=== PATIENT | female | born 1965 | race Caucasian/White ===

== ENCOUNTER 2016-09-21 19:09 | Emergency (ER) | payer SELFPAY ==
[~2016-09-21] VITALS: Ht 162.6 cm; Wt 95.3 kg
[~2016-09-21 19:09] MED LIST: PENI500T PO
[2016-09-21 19:22] VITALS: BP 128/83
--- NOTE | 2016-09-21 19:26 | ED.ADGEN ---
Past Medical History Past Medical History: COPD, GERD Additional Past Medical Histor: ear infections Past Surgical History: Cholecystectomy, , Other Additional Past Surgical Histo: ears Alcohol Use: None Drug Use: None Adult General Chief Complaint Chief Complaint: KNEE INJURY HPI HPI Patient is a 51 year old female presents with right knee injury. Patient turned lost balance and fell directly on her right knee. Patient reports pain, tenderness and swelling at rest with weightbearing on standing. No other injury or complaint. Review of Systems Review of Systems Review symptoms as per history of present illness. All other review symptoms are negative. Current Medications Current Medications Current Medications Medications (Trade) Dose Ordered Sig/Lanie Start Time Stop Time Status Last Admin Dose Admin Oxycodone/ Acetaminophen (Percocet 10/325) 1 tab 1X ONCE 09/21/16 19:45 09/21/16 19:46 DC 09/21/16 19:27 1 TAB Allergies Allergies Allergies Coded Allergies Type Severity Reaction Last Updated Verified No Known Drug Allergies 10/07/13 No Physical Exam Physical Exam Constitutional: Well developed, well nourished, moderate discomfort secondary to pain. Extremities: Right knee, infrapatellar swelling, tenderness and abrasion. Pain with palpation range of motion. No obvious deformity. Neurologic: Alert and oriented X 3, lower extremity, no motor weakness or loss of sensation. Psychologic: Affect normal, judgement normal, mood normal. Current Patient Data Vital Signs Vital Signs Date Time Temp Pulse Resp B/P (MAP) Pulse Ox O2 Delivery O2 Flow Rate FiO2 09/21/16 19:22 97.9 88 22 97 Room Air 97.9 EKG EKG [] Radiology/Procedures Radiology/Procedures [Right knee x-ray: Suspected patellar fracture] Impressions: Right knee injury with suspected patellar fracture Course & Med Decision Making Course & Med Decision Making Pertinent Labs and Imaging studies reviewed. (See chart for details) [Patient's pain addressed. placed in the immobilizer and given crutches. Instructions to follow-up with on-call orthopedic surgeon for reevaluation. Return precautions reviewed.] Dragon Disclaimer Dragon Disclaimer This electronic medical record was generated, in whole or in part, using a voice recognition dictation system. LD KUMAR DO September 21, 2016 19:26
[2016-09-21] MEDS ORDERED: oxyCODONE/APAP 10/325 1 TAB TABLET PO ONE (19:45)
--- NOTE | 2016-09-22 08:52 | RAD ---
Indication fall, pain. AP oblique and lateral views of the right knee were obtained. No bony abnormality is seen
== END 2016-09-21 21:25 | disposition home or self-care (01) ==
LOC: ER 19:09
DX: S89.91XA Unspecified injury of right lower leg, initial encounter (principal); J44.9 Chronic obstructive pulmonary disease, unspecified; K21.9 Gastro-esophageal reflux disease without esophagitis; W19.XXXA Unspecified fall, initial encounter; Y93.89 Activity, other specified; Y92.89 Other specified places as the place of occurrence of the external cause; Y99.8 Other external cause status
CPT/HCPCS: 29505; 73562; 99284-25

== ENCOUNTER 2019-06-27 04:17 | Emergency (ER) | payer SELFPAY ==
[~2019-06-27] VITALS: Ht 162.6 cm; Wt 90.9 kg
[~2019-06-27 04:17] MED LIST changes: +PRED-220 PO; +Smz/Tmp 800/160MG PO
[2019-06-27] MEDS ORDERED: KETOROLAC 60 MG/2 ML VIAL. IM ONE (04:30)
[2019-06-27] MEDS ORDERED: ORPHENADRINE CITRATE 60 MG/2 ML VIAL. IM ONE (04:30)
--- NOTE | 2019-06-27 04:48 | PHYS DOC ---
Past Medical History Past Medical History: COPD, GERD Additional Past Medical Histor: ear infections (JEANNINE LAKHANI MD) Past Surgical History: Cholecystectomy, , Other Additional Past Surgical Histo: ears (JEANNINE LAKHANI MD) Smoking Status: Current Some Day Smoker Alcohol Use: None Drug Use: None (JEANNINE LAKHANI MD) Adult General Chief Complaint Chief Complaint: BACK PAIN - NO INJURY HPI HPI Patient presents to the ER with complaints of back pain via EMS. Patient states she had pain last week to her lower back into her left buttock, she denies injury. Patient denies numbness/tingling, bowel or bladder dysfunction. She states tonight she woke up to go to the bathroom and had onset of severe pain in her left buttock and down her left leg. She states the pain is constant however at times has episodic spasm down her leg. Patient is very difficult to get information from regarding onset and characteristic of pain as she is crying and will not focus enough to talk. She states she does have COPD and recently stopped smoking. (JEANNINE LAKHANI MD) Review of Systems Review of Systems Constitutional: Denies fever or chills [] Eyes: Denies change in visual acuity, redness, or eye pain [] HENT: Denies nasal congestion or sore throat [] Respiratory: Denies cough or shortness of breath [] Cardiovascular: No additional information not addressed in HPI [] GI: Denies abdominal pain, nausea, vomiting, bloody stools or diarrhea [] : Denies dysuria or hematuria [] Musculoskeletal: lower left back/buttock pain, radiates down her leg Integument: Denies rash or skin lesions [] Neurologic: Denies headache, focal weakness or sensory changes [] All other systems were reviewed and found to be within normal limits, except as documented in this note. (JEANNINE LAKHANI MD) Current Medications Current Medications Current Medications Medications (Trade) Dose Ordered Sig/Lanie Start Time Stop Time Status Last Admin Dose Admin Fentanyl Citrate (Fentanyl 2ml Vial) 50 mcg 1X ONCE 06/27/19 05:15 06/27/19 05:20 DC 06/27/19 05:10 50 MCG Ketorolac Tromethamine (Toradol Im) 60 mg 1X ONCE 06/27/19 04:30 06/27/19 04:31 DC 06/27/19 04:31 60 MG Midazolam HCl (Versed) 2 mg 1X ONCE 06/27/19 05:15 06/27/19 05:20 DC 06/27/19 05:10 2 MG Orphenadrine Citrate (Norflex) 60 mg 1X ONCE 06/27/19 04:30 06/27/19 04:31 DC 06/27/19 04:32 60 MG Sodium Chloride 1,000 ml @ 1,000 mls/hr 1X ONCE 06/27/19 07:30 06/27/19 08:29 06/27/19 07:34 1,000 MLS/HR (ELIZA SHAH DO) Allergies Allergies Allergies Coded Allergies Type Severity Reaction Last Updated Verified No Known Drug Allergies 10/07/13 No (ELIZA SHAH DO) Physical Exam Physical Exam Constitutional: Well developed, well nourished, severe distress 2/2 pain, non- toxic appearance. [] HENT: Normocephalic, atraumatic, bilateral external ears normal, oropharynx moist, no oral exudates, nose normal. [] Eyes: PERRLA, EOMI, conjunctiva normal, no discharge. [] Neck: Normal range of motion, no tenderness, supple, no stridor. [] Cardiovascular: tachycardia Lungs & Thorax: tachypnea, no wheeze on exam Abdomen: Bowel sounds normal, soft, no tenderness, no masses, no pulsatile masses. [] Skin: Warm, dry, no erythema, no rash. [] Back: no CVA tenderness, tenderness appreciated to her left buttock Extremities: No tenderness, no cyanosis, no clubbing, ROM intact, no edema, negative SLR on exam however difficult to assess given crying/non cooperative [] Neurologic: Alert and oriented X 3, no focal deficits noted,[] Psychologic: Affect normal, judgement normal, mood normal. [] (JEANNINE LAKHANI MD) Current Patient Data Vital Signs Vital Signs Date Time Temp Pulse Resp B/P (MAP) Pulse Ox O2 Delivery O2 Flow Rate FiO2 06/27/19 06:00 96 144/100 (115) 97 Nasal Cannula 2.0 06/27/19 05:10 20 06/27/19 04:35 97.8 97.8 (ELIZA SHAH DO) EKG EKG [] (JEANNINE LAKHANI MD) Radiology/Procedures Radiology/Procedures [] (JEANNINE LAKHANI MD) Radiology/Procedures [facility] [address] [place] [address] IMAGING REPORT Signed PATIENT: AVIVA MARTINEZ ACCOUNT: [id number] : 1965 LOCATION: ER AGE: 53 SEX: F EXAM STATUS: REG ER ORD. PHYSICIAN: JEANNINE LAKHANI MD REASON: low back pain, radiation down her leg PROCEDURE: CT LUMBAR SPINE WO CONTRAST PQRS Compliance Statement: One or more of the following individualized dose reduction techniques were utilized for this examination: 1. Automated exposure control 2. Adjustment of the mA and/or kV according to patient size 3. Use of iterative reconstruction technique CT LUMBAR SPINE WO CONTRAST Clinical Indication: Low back pain radiation down leg. Comparison: CT abdomen and pelvis with contrast, July 03, 2013. The TECHNIQUE: Helical CT imaging of the lumbar spine is performed without IV contrast. Findings: No acute fracture of the lumbar spine is identified. There is minimal grade 1 anterolisthesis of L5 on S1. There is no spondylolysis. The alignment is otherwise maintained. There is rudimentary disc space of S1/S2. There is mild degenerative endplate spurring of the lumbar spine. There is mild disc space narrowing of L1/L2 and L2/L3. Visualized lung bases are clear. Cholecystectomy. Mild distal colon diverticulosis. L3/L4: There is small posterior disc osteophyte complex. There is moderate facet hypertrophy on the right. Mild ligamentum flavum redundancy. There is narrowing of the left lateral recess. There is mild central canal stenosis. Mild left and moderate right neural foraminal narrowing. L4/L5: There is small broad-based posterior disc bulge. Moderate facet hypertrophy. Central canal stenosis is no more than mild. Moderate bilateral neural foraminal narrowing. L5/S1: Anterolisthesis at this level. Slight unroofing of the disc. There is minimal posterior disc bulge. There is severe facet hypertrophy. Mild ligamentum flavum redundancy. The central canal is adequate. Mild to moderate bilateral neural foraminal narrowing. IMPRESSION: No acute compression fracture or malalignment of the lumbar spine. Electronically signed by: Kali Joseph MD (06/27/2019 6:46 AM) [id number] DICTATED and SIGNED BY: KALI JOSEPH MD DATE: 06/27/19 0646 (ELIZA SHAH DO) Course & Med Decision Making Course & Med Decision Making Pertinent Labs and Imaging studies reviewed. (See chart for details) []Patient presents to the ER with complaints of back pain via EMS. Patient states she had pain last week to her lower back into her left buttock, she denies injury. Patient denies numbness/tingling, bowel or bladder dysfunction. She states tonight she woke up to go to the bathroom and had onset of severe pain in her left buttock and down her left leg. She states the pain is constant however at times has episodic spasm down her leg. Patient is very difficult to get information from regarding onset and characteristic of pain as she is crying and will not focus enough to talk. She states she does have COPD and recently stopped smoking. Norflex/Toradol IM without relief - continued difficulty with exam, patient still uncontrollable Versed 2mg/Fentanyl 50mcg IV x 1 - will need to have pain better controlled and not moving around prior to CT evalution. Care transferred to Dr. Shah - he will follow up with CT and plan for disposition (JEANNINE LAKHANI MD) Course & Med Decision Making CT SCAN OF LUMBAR SPINE DID NOT SHOW ANY ACUTE PROBLEM. PATIENT WAS GIVEN MEDICATION IN THE ER, FELT MUCH BETTER, WILL DISCHARGE HER HOME. (ELIZA SHAH DO) Dragon Disclaimer Dragon Disclaimer This electronic medical record was generated, in whole or in part, using a voice recognition dictation system. (JEANNINE LAKHANI MD) Departure Departure Impression: Primary Impression: Back pain Disposition: HOME, SELF-CARE Condition: IMPROVED Referrals: NO PCP (PCP) FOLLOW UP WITH YOUR DOCTOR ON FRIDAY FOR REEVALUATION. Patient Instructions: Back Pain, Adult Additional Instructions: Thank you for visiting our Emergency Department. We appreciate you trusting us with your care. If any additional problems come up don't hesitate to return to visit us. Please follow up with your primary care provider so they can plan additional care if needed and know about the problem that you had. If symptoms worsen come back to the Emergency Department. Any concerning symptoms that start such as chest pain, shortness of air, weakness or numbness on one side of the body, running high fevers or any other concerning symptoms return to the ER. Scripts Cyclobenzaprine Hcl (CYCLOBENZAPRINE HCL) 10 Mg Tablet 1 TAB PO TID for MUSCLE SPASM, #20 TAB Prov: ELIZA SHAH DO 06/27/19 Naproxen Sodium (ANAPROX DS) 550 Mg Tablet 1 TAB PO PRN BID PRN for BACK PAIN for 15 Days, #30 TAB 0 Refills Prov: ELIZA SHAH DO 06/27/19 Problem Qualifiers Primary Impression: Back pain Back pain location: low back pain Chronicity: acute Back pain laterality: left Sciatica presence: with sciatica Sciatica laterality: sciatica of left side Qualified Codes: M54.42 - Lumbago with sciatica, left side JEANNINE LAKHANI MD Jun 27, 2019 04:48 ELIZA SHAH DO Jun 27, 2019 08:03
[2019-06-27] MEDS ORDERED: MIDAZOLAM HCL/PF 2 MG/2 ML VIAL. ONE (05:02)
[2019-06-27] MEDS ORDERED: fentaNYL PF VIAL 100 MCG/2 ML VIAL ONE (05:02)
[2019-06-27] MEDS ORDERED: fentaNYL PF VIAL 100 MCG/2 ML VIAL IV ONE (05:15)
[2019-06-27] MEDS ORDERED: MIDAZOLAM HCL/PF 5 MG/5 ML VIAL. IV ONE (05:15)
--- NOTE | 2019-06-27 06:49 | RAD ---
PQRS Compliance Statement: One or more of the following individualized dose reduction techniques were utilized for this examination: 1. Automated exposure control 2. Adjustment of the mA and/or kV according to patient size 3. Use of iterative reconstruction technique CT LUMBAR SPINE WO CONTRAST Clinical Indication: Low back pain radiation down leg. Comparison: CT abdomen and pelvis with contrast, July 03, 2013. The TECHNIQUE: Helical CT imaging of the lumbar spine is performed without IV contrast. Findings: No acute fracture of the lumbar spine is identified. There is minimal grade 1 anterolisthesis of L5 on S1. There is no spondylolysis. The alignment is otherwise maintained. There is rudimentary disc space of S1/S2. There is mild degenerative endplate spurring of the lumbar spine. There is mild disc space narrowing of L1/L2 and L2/L3. Visualized lung bases are clear. Cholecystectomy. Mild distal colon diverticulosis. L3/L4: There is small posterior disc osteophyte complex. There is moderate facet hypertrophy on the right. Mild ligamentum flavum redundancy. There is narrowing of the left lateral recess. There is mild central canal stenosis. Mild left and moderate right neural foraminal narrowing. L4/L5: There is small broad-based posterior disc bulge. Moderate facet hypertrophy. Central canal stenosis is no more than mild. Moderate bilateral neural foraminal narrowing. L5/S1: Anterolisthesis at this level. Slight unroofing of the disc. There is minimal posterior disc bulge. There is severe facet hypertrophy. Mild ligamentum flavum redundancy. The central canal is adequate. Mild to moderate bilateral neural foraminal narrowing. IMPRESSION: No acute compression fracture or malalignment of the lumbar spine. Electronically signed by: Kali Joseph MD (06/27/2019 6:46 AM) [id number]
[2019-06-27] MEDS ORDERED: IV NORMAL SALINE 1000ML BAG 1,000 ML IV ONE (07:30)
[2019-06-27] MEDS ORDERED: TRAM50TA PO (08:01)
[2019-06-27] MEDS ORDERED: NAPR-682 PO (08:01)
[2019-06-27] MEDS ORDERED: CYCL10TA2 PO (08:01)
[2019-06-27 08:14] VITALS: BP 117/72
== END 2019-06-27 08:45 | disposition home or self-care (01) ==
LOC: ER 04:17
DX: M54.42 Lumbago with sciatica, left side (principal); J44.9 Chronic obstructive pulmonary disease, unspecified; K21.9 Gastro-esophageal reflux disease without esophagitis; F17.200 Nicotine dependence, unspecified, uncomplicated; Z90.49 Acquired absence of other specified parts of digestive tract; Z98.890 Other specified postprocedural states; Z79.899 Other long term (current) drug therapy
CPT/HCPCS: 72131; 96372; 96374; 96375; 99284; J1885; J2250; J2360; J3010; J7030

== ENCOUNTER 2019-09-09 16:19 | Emergency (ER) | payer SELFPAY ==
[~2019-09-09] VITALS: Ht 162.6 cm; Wt 84.0 kg
[~2019-09-09 16:19] MED LIST changes: +CYCL10TA2 PO; +NAPR-682 PO; +TRAM50TA PO
[2019-09-09 16:43] VITALS: BP 163/109
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
[2019-09-09] MEDS: ORPHENADRINE CITRATE 60 MG/2 ML VIAL. IM ONE (17:30)
[2019-09-09] MEDS: HYDROcodone/APAP 5/325MG 1 TAB TABLET PO ONE (17:30)
--- NOTE | 2019-09-09 17:44 | RAD ---
CLAVICLE RIGHT, SHOULDER 2+V RIGHT, HUMERUS RIGHT 09/09/2019 5:17 PM INDICATION: Fall, pain COMPARISON: None available. TECHNIQUE: 3 views the right shoulder, 2 views of the right humerus and 2 views of the right clavicle are provided. FINDINGS/ IMPRESSION: 1. Right clavicle: No acute fracture or dislocation. 2. Right shoulder: No acute fracture or dislocation involving the acromioclavicular and glenohumeral joints. Tiny inferiorly projecting osteophyte identified at the acromioclavicular joint. 3. Right humerus: There is no acute fracture or dislocation. Joint spaces are maintained. Bone mineralization is within normal limits. Regional soft tissues are within normal limits. There is no soft tissue gas or osseous erosion. No radiopaque foreign body. Electronically signed by: Marialuisa Biswas MD (09/09/2019 5:41 PM) FABIANA
[2019-09-09] MEDS ORDERED: HYDR-3164 PO (17:58)
[2019-09-09] MEDS ORDERED: ORPH100T PO (17:58)
[2019-09-09] MEDS ORDERED: IBUP-1007 PO (17:58)
== END 2019-09-09 18:26 | disposition home or self-care (01) ==
LOC: ER 16:19
DX: M25.511 Pain in right shoulder (principal); G89.11 Acute pain due to trauma; J44.9 Chronic obstructive pulmonary disease, unspecified; K21.9 Gastro-esophageal reflux disease without esophagitis; F17.200 Nicotine dependence, unspecified, uncomplicated; Z90.49 Acquired absence of other specified parts of digestive tract; W18.09XA Striking against other object with subsequent fall, initial encounter; Y93.89 Activity, other specified; Y92.89 Other specified places as the place of occurrence of the external cause; Y99.8 Other external cause status
CPT/HCPCS: 73000; 73030; 73060; 96372; 99284; J2360; 29105; A4565

== ENCOUNTER 2021-02-28 17:07 | Emergency (ER) | payer SELFPAY ==
[~2021-02-28] VITALS: Ht 165.1 cm; Wt 205.0 kg
[~2021-02-28 17:07] MED LIST changes: +AMOX1TAB61 PO; +HYDR-3164 PO; +IBUP-1007 PO; +ORPH100T PO
[2021-02-28 18:29] LABS: BASO % 1 % (0-3); EOS # 0.2 x10^3/uL (0.0-0.7); EOS % 3 % (0-3); HEMATOCRIT 39.9 % (36.0-47.0); HEMOGLOBIN 13.7 g/dL (12.0-15.5); LYMPH # 2.2 x10^3/uL (1.0-4.8); LYMPH % 36 % (24-48); MEAN CORPUSCULAR HEMOGLOBIN 31 pg (25-35); MEAN CORPUSCULAR HGB CONC 34 g/dL (31-37); MEAN CORPUSCULAR VOLUME 90 fL (79-100); MONO # 0.5 x10^3/uL (0.0-1.1); MONO % 8 % (0-9); NEUT # 3.2 x10^3/uL (1.8-7.7); NEUT % 53 % (31-73); PLATELET COUNT 234 x10^3/uL (140-400); RED BLOOD COUNT 4.41 x10^6/uL (3.50-5.40); RED CELL DISTRIBUTION WIDTH 13.9 % (11.5-14.5); WHITE BLOOD COUNT 6.1 x10^3/uL (4.0-11.0)
--- NOTE | 2021-02-28 18:32 | RAD ---
Exam: CT of abdomen and pelvis without contrast INDICATION: Abdominal pain TECHNIQUE: Sequential axial images through the abdomen and pelvis obtained without IV contrast. Sagit traci and coronal reformatted images were reconstructed from the axial data and reviewed. Exposure: One or more of the following in the visualized dose reduction techniques were utilized for this examination: 1. Automated exposure control 2. Adjustment of the MA and/or KV according to patient size 3. Use of iterative of reconstructive technique Comparisons: None FINDINGS: Heart size is normal. No pericardial effusion. Visualized lung bases are clear. No pleural effusion. Evaluation solid organs limited secondary to noncontrast technique. Liver, spleen, pancreas and adrenals are unremarkable. Gallbladder is absent. No perinephric inflammation or hydronephrosis. No renal or ureteral calculi are identified. Bladder is decompressed not well evaluated. Uterus is not enlarged. No abnormal adnexal mass. Large and small bowel are unremarkable. Appendix is normal. No free intra-abdominal air or fluid. No obstruction. Abdominal aorta has a normal course and caliber. No enlarged intra-abdominal lymph nodes are identified. No suspicious osseous lesions or acute fractures. IMPRESSION: No acute process identified within the abdomen or pelvis. Electronically signed by: Martínez Hui MD (02/28/2021 6:30 PM) [facility]
[2021-02-28 18:43] LABS: CALCIUM 8.8 mg/dL (8.5-10.1); CREATININE 0.7 mg/dL (0.6-1.0); GFR 86.2
[2021-02-28 18:49] LABS: ALBUMIN 3.3 g/dL (3.4-5.0); ALBUMIN/GLOBULIN RATIO 0.8 (1.0-1.7); TOTAL BILIRUBIN 0.3 mg/dL (0.2-1.0); TOTAL PROTEIN 7.2 g/dL (6.4-8.2)
[2021-02-28] MEDS ORDERED: KETOROLAC 30 MG/ML VIAL. IVP ONE (19:00)
[2021-02-28 19:21] LABS: BILIRUBIN,URINE NEGATIVE (NEG); CLARITY,URINE CLOUDY; COLOR,URINE YELLOW; NITRITE,URINE NEGATIVE (NEG); PH,URINE 5.5 (<5.0-8.0); PROTEIN,URINE NEGATIVE (NEG-TRACE); UROBILINOGEN,URINE 0.2 mg/dL (0.2 mg/dL)
[2021-02-28 19:28] LABS: AMPHETAMINE/METHAMPHETAMINE POS (NEG); BARBITURATES NEG (NEG); BENZODIAZEPINES NEG (NEG); CANNABINOIDS NEG (NEG); COCAINE NEG (NEG); METHADONE NEG (NEG); OPIATES NEG (NEG); PHENCYCLIDINE NEG (NEG)
[2021-02-28 19:29] LABS: BACTERIA,URINE 0 /HPF (0-FEW); RBC,URINE 0 /HPF (0-2); WBC,URINE OCC /HPF (0-4)
[2021-02-28 20:00] VITALS: BP 147/77
--- NOTE | 2021-02-28 20:05 | PHYS DOC ---
Past Medical History Past Medical History: COPD, GERD Additional Past Medical Histor: ear infections Past Surgical History: Cholecystectomy, Additional Past Surgical Histo: ears Smoking Status: Current Every Day Smoker Alcohol Use: None Drug Use: None General Adult EDM: Chief Complaint: ABDOMINAL PAIN HPI: HPI: Patient is a 55 year old female with a history of COPD, acid reflux, who presents to the ED today complaining of intermittent abdominal pain around her umbilicus with a knot around the umbilicus, symptoms for 1 year. Patient states today symptoms were worse hence the reason she came to the ED. Denies any nausea, vomiting, urgency, frequency or dysuria. Describes the pain as throbbing Review of Systems: Review of Systems: Constitutional: Denies fever or chills. [] Eyes: Denies change in visual acuity. [] HENT: Denies nasal congestion or sore throat. [] Respiratory: Denies cough or shortness of breath. [] Cardiovascular: Denies chest pain or edema. [] GI: Reports abdominal pain, knot around the stomach, denies nausea, vomiting, bloody stools or diarrhea. [] : Denies dysuria. [] Musculoskeletal: Denies back pain or joint pain. [] Integument: Denies rash. [] Neurologic: Denies headache, focal weakness or sensory changes. [] Psychiatric: Denies depression or anxiety. [] Heart Score: C/O Chest Pain: N/A Risk Factors: Risk Factors: DM, Current or recent (<one month) smoker, HTN, HLP, family history of CAD, obesity. Risk Scores: Score 0 - 3: 2.5% MACE over next 6 weeks - Discharge Home Score 4 - 6: 20.3% MACE over next 6 weeks - Admit for Clinical Observation Score 7 - 10: 72.7% MACE over next 6 weeks - Early Invasive Strategies Current Medications: Current Medications Medications (Trade) Dose Ordered Sig/Lanie Start Time Stop Time Status Last Admin Dose Admin Ketorolac Tromethamine (Toradol 30mg Vial) 30 mg 1X ONCE 02/28/21 19:00 02/28/21 19:01 DC 02/28/21 19:09 30 MG Allergies: Allergies: Allergies Coded Allergies Type Severity Reaction Last Updated Verified No Known Drug Allergies 10/07/13 No Physical Exam: PE: Constitutional: Well developed, well nourished, no acute distress, non-toxic appearance. [] HENT: Normocephalic, atraumatic, bilateral external ears normal, oropharynx moist, no oral exudates, nose normal. [] Eyes: PERRLA, EOMI, conjunctiva normal, no discharge. [] Neck: Normal range of motion, no tenderness, supple, no stridor. [] Cardiovascular:Heart rate regular rhythm, no murmur [] Lungs & Thorax: Bilateral breath sounds clear to auscultation [] Abdomen: Bowel sounds normal, soft, no tenderness, no masses, no pulsatile masses. [] Skin: Warm, dry, no erythema, no rash. [] Back: No tenderness, no CVA tenderness. [] Extremities: No tenderness, no cyanosis, no clubbing, ROM intact, no edema. [] Neurologic: Alert and oriented X 3, normal motor function, normal sensory function, no focal deficits noted. [] Psychologic: Affect normal, judgement normal, mood normal. [] Current Patient Data: Labs: Laboratory Tests Test 02/28/21 18:10 02/28/21 19:05 White Blood Count 6.1 x10^3/uL (4.0-11.0) Red Blood Count 4.41 x10^6/uL (3.50-5.40) Hemoglobin 13.7 g/dL (12.0-15.5) Hematocrit 39.9 % (36.0-47.0) Mean Corpuscular Volume 90 fL (79-100) Mean Corpuscular Hemoglobin 31 pg (25-35) Mean Corpuscular Hemoglobin Concent 34 g/dL (31-37) Red Cell Distribution Width 13.9 % (11.5-14.5) Platelet Count 234 x10^3/uL (140-400) Neutrophils (%) (Auto) 53 % (31-73) Lymphocytes (%) (Auto) 36 % (24-48) Monocytes (%) (Auto) 8 % (0-9) Eosinophils (%) (Auto) 3 % (0-3) Basophils (%) (Auto) 1 % (0-3) Neutrophils # (Auto) 3.2 x10^3/uL (1.8-7.7) Lymphocytes # (Auto) 2.2 x10^3/uL (1.0-4.8) Monocytes # (Auto) 0.5 x10^3/uL (0.0-1.1) Eosinophils # (Auto) 0.2 x10^3/uL (0.0-0.7) Basophils # (Auto) 0.0 x10^3/uL (0.0-0.2) Sodium Level 138 mmol/L (136-145) Potassium Level 4.0 mmol/L (3.5-5.1) Chloride Level 105 mmol/L (98-107) Carbon Dioxide Level 26 mmol/L (21-32) Anion Gap 7 (6-14) Blood Urea Nitrogen 15 mg/dL (7-20) Creatinine 0.7 mg/dL (0.6-1.0) Estimated GFR (Cockcroft-Gault) 86.2 BUN/Creatinine Ratio 21 (6-20) H Glucose Level 128 mg/dL (70-99) H Calcium Level 8.8 mg/dL (8.5-10.1) Total Bilirubin 0.3 mg/dL (0.2-1.0) Aspartate Amino Transferase (AST) 20 U/L (15-37) Alanine Aminotransferase (ALT) 34 U/L (14-59) Alkaline Phosphatase 95 U/L (46-116) Total Protein 7.2 g/dL (6.4-8.2) Albumin 3.3 g/dL (3.4-5.0) L Albumin/Globulin Ratio 0.8 (1.0-1.7) L Lipase 128 U/L (73-393) Ethyl Alcohol Level < 10 mg/dL (0-10) Urine Collection Type Unknown Urine Color Yellow Urine Clarity Cloudy Urine pH 5.5 (<5.0-8.0) Urine Specific [place] 1.025 (1.000-1.030) Urine Protein Negative mg/dL (NEG-TRACE) Urine Glucose (UA) Negative mg/dL (NEG) Urine Ketones (Stick) Negative mg/dL (NEG) Urine Blood Negative (NEG) Urine Nitrite Negative (NEG) Urine Bilirubin Negative (NEG) Urine Urobilinogen Dipstick 0.2 mg/dL (0.2 mg/dL) Urine Leukocyte Esterase Trace (NEG) Urine RBC 0 /HPF (0-2) Urine WBC Occ /HPF (0-4) Urine Squamous Epithelial Cells Mod /LPF Urine Bacteria 0 /HPF (0-FEW) Urine Mucus Mod /LPF Urine Opiates Screen Neg (NEG) Urine Methadone Screen Neg (NEG) Urine Barbiturates Neg (NEG) Urine Phencyclidine Screen Neg (NEG) Urine Amphetamine/Methamphetamine Pos (NEG) Urine Benzodiazepines Screen Neg (NEG) Urine Cocaine Screen Neg (NEG) Urine Cannabinoids Screen Neg (NEG) Urine Ethyl Alcohol Neg (NEG) Laboratory Tests 02/28/21 18:10 Laboratory Tests 02/28/21 18:10 Vital Signs: Vital Signs Date Time Temp Pulse Resp B/P (MAP) Pulse Ox O2 Delivery O2 Flow Rate FiO2 02/28/21 17:12 98.0 90 26 176/98 (124) 95 Room Air 98.0 EKG: EKG: [] Radiology/Procedures: Radiology/Procedures: [] Course & Med Decision Making: Course & Med Decision Making Pertinent Labs and Imaging studies reviewed. (See chart for details) This a 55-year-old female patient presented to the ED today with abdominal pain and a knot around her stoma, symptoms have been going on for 1 year. CBC, CMP, UA and CT of the abdomen and pelvis were negative for any acute findings. Positive for methamphetamine. Discharge to home. Follow-up with PCP or [place] [facility] Disclaimer: Adeola Disclaimer: This electronic medical record was generated, in whole or in part, using a voice recognition dictation system. Departure Departure Impression: Primary Impression: Abdominal pain Qualified Codes: R10.33 - Periumbilical pain Additional Impression: Methamphetamine use Disposition: HOME / SELF CARE / HOMELESS Condition: STABLE Referrals: NO PCP (PCP) SERGIO STARKS MD Follow-up in 1 week Patient Instructions: Abdominal Pain (Nonspecific) Additional Instructions: You were evaluated in the emergency room for abdominal pain. Your labs as well as CT of the abdomen and pelvis are negative for any acute findings. Please fol low-up with the provided doctor and your primary care doctor in 1 week LEONARDO WHITFIELD [employer] Feb 28, 2021 20:05
== END 2021-02-28 20:13 | disposition home or self-care (01) ==
LOC: ER 18:18
DX: R10.33 Periumbilical pain (principal); F15.90 Other stimulant use, unspecified, uncomplicated; J44.9 Chronic obstructive pulmonary disease, unspecified; K21.9 Gastro-esophageal reflux disease without esophagitis; F17.200 Nicotine dependence, unspecified, uncomplicated; Z90.49 Acquired absence of other specified parts of digestive tract; Z98.890 Other specified postprocedural states
CPT/HCPCS: 36415; 74176; 80053; 80307; 81001; 83690; 85025; 87086; 96374; 99284; G0480; J1885